=== PATIENT | female | born 1945 | race American Indian/Alaskan Native ===

== ENCOUNTER 2019-06-21 06:22 | Day surgery (SDC) | payer MEDICARE ==
[2019-06-21] MEDS ORDERED: NACL 0.9% 1000 ML 1,000 ML IV SCH (07:00)
[2019-06-21] MEDS ORDERED: WATER FOR IRRIG STERILE IR ONE (07:20)
[2019-06-21] MEDS ORDERED: WATER FOR IRRIG STERILE ONE (07:21)
[2019-06-21] MEDS ORDERED: PROVENTIL IH NR (08:00)
--- NOTE | 2019-06-21 08:23 | Anesthesia Day of Surgery ---
Anesthesia Day of Surgery - Day of Surgery Patient Examined: Yes Patient H&P Reviewed: Yes Patient is NPO: Yes
--- NOTE | 2019-06-21 08:23 | Anesthesia Consultation ---
Anesthesia Consult and Med Hx Date of service: 06/21/19 - Airway Anesthetic Teeth Evaluation: Good ROM Head & Neck: Adequate Mental/Hyoid Distance: Adequate Mallampati Class: Class II Intubation Access Assessment: Good - Pulmonary Exam CTA: No (Wheesing bilaterally ) - Cardiac Exam Cardiac Exam: RRR - Pre-Operative Health Status ASA Pre-Surgery Classification: ASA3 Proposed Anesthetic Plan: MAC (Will give nebulisation treatment prior to colonoscopy ) - Pulmonary Hx Smoking: Yes COPD: Yes - Cardiovascular System Hx Hypertension: Yes - Central Nervous System CVA: Yes - Other Systems Hx Cancer: Yes
[2019-06-21] MEDS ORDERED: DIPRIVAN 10 MG/ML IV ONE ×3 (08:30→09:07)
--- NOTE | 2019-06-21 09:30 | Short Stay Summary ---
Short Stay Documentation - Allergies and Medications Current Medications: Allergies No Known Allergies Allergy (Verified 06/20/19 11:10) Home Medications Medication Instructions Recorded Confirmed Last Taken Type ALBUTEROL Inhaler (OR & NICU) 2 puff INHALATION DAILY 06/20/19 06/21/19 06/21/19 History Aspirin BABY CHEW TAB 1 tab PO DAILY 06/20/19 06/21/19 06/19/19 History Chlorthalidone 0.5 mg PO DAILY 06/20/19 06/21/19 06/19/19 History Vitamin D3 1,000 UNIT TAB 1 tab PO DAILY 06/20/19 06/21/19 06/19/19 History amLODIPine 1 tab PO DAILY 06/20/19 06/21/19 06/21/19 History Active Medications Albuterol (Proventil) 2.5 mg IH PREOP NR Stop: 06/21/19 11:00 Last Admin: 06/21/19 07:57 Dose: 2.5 mg Documented by: Sodium Chloride (Nacl 0.9% 1000 Ml) 1,000 mls @ 50 mls/hr IV DIRECT [facility] Last Admin: 06/21/19 07:57 Dose: 50 mls/hr Documented by: - Brief post op/procedure progress note Date of procedure: 06/21/19 Pre-op diagnosis: Colon cancer screening Post-op diagnosis: same (1. Colon polyps 2. Diverticulosis coli 3. Internal hemorrhoids) Procedure: Colonoscopy with snare polypectomy and cold biopsy polypectomy Anesthesia: MAC Findings: as above Surgeon: DANYELL VELASQUEZ Estimated blood loss: none Pathology: list (1. Transverse colon polyps) Specimen disposition: to lab Condition: stable - Disposition Condition at discharge: Stable Disposition: DC-01 TO HOME OR SELFCARE Short Stay Discharge Plan Activity: no restrictions Weight Bearing Status: Full Weight Bearing Diet: regular, low salt Follow up with: JANENE RG MD [Primary Care Provider] - 7 Days
[2019-06-21 11:32] VITALS: BP 103/66
== END 2019-06-21 06:23 | disposition home or self-care (01) ==
LOC: GIO 06:22
PROVIDERS: ATTEND Internal Medicine Gastroenterology
DX: Z12.11 Encounter for screening for malignant neoplasm of colon (principal); D12.3 Benign neoplasm of transverse colon; K64.8 Other hemorrhoids; K57.30 Diverticulosis of large intestine without perforation or abscess without bleeding; I10 Essential (primary) hypertension; J44.9 Chronic obstructive pulmonary disease, unspecified; M19.90 Unspecified osteoarthritis, unspecified site; Z98.51 Tubal ligation status; Z87.891 Personal history of nicotine dependence; Z90.11 Acquired absence of right breast and nipple; Z85.3 Personal history of malignant neoplasm of breast; Z80.8 Family history of malignant neoplasm of other organs or systems; Z98.890 Other specified postprocedural states; Z79.899 Other long term (current) drug therapy; Z79.82 Long term (current) use of aspirin; Z86.73 Personal history of transient ischemic attack (TIA), and cerebral infarction without residual deficits; Z82.49 Family history of ischemic heart disease and other diseases of the circulatory system
CPT/HCPCS: 45380; 45385; 88305; J2704; J7030